=== PATIENT | female | born 1995 | race Caucasian/White ===

== ENCOUNTER 2020-05-28 22:00 | Emergency (ER) | payer MEDICAID, OTHER ==
[~2020-05-28] VITALS: Ht 157.5 cm; Wt 78.6 kg
[2020-05-28 22:53] LABS: BASO % 0.3 % (0.0-1.0); EOS # 0.2 10^3/uL (0.0-0.5); EOS % 1.6 % (0.0-3.0); HEMATOCRIT 42.3 % (36.0-47.0); HEMOGLOBIN 14.1 g/dl (12.0-15.5); LYMPH # 2.4 10^3/uL (1.5-5.0); LYMPH % 24.9 % (24.0-44.0); MEAN CORPUSCULAR HEMOGLOBIN 30.6 pg (27.0-33.0); MEAN CORPUSCULAR HGB CONC 33.3 g/dl (32.0-36.5); MEAN CORPUSCULAR VOLUME 91.8 fl (80.0-96.0); MONO # 0.6 10^3/uL (0.0-0.8); MONO % 5.9 % (0.0-5.0); NEUTROPHILS # 6.3 10^3/uL (1.5-8.5); NEUTROPHILS % 67.1 % (36.0-66.0); PLATELET COUNT, AUTOMATED 390 10^3/uL (150-450); RED BLOOD COUNT 4.61 10^6/uL (4.00-5.40); WHITE BLOOD COUNT 9.4 10^3/uL (4.0-10.0)
[2020-05-28] MEDS ORDERED: IBUP-1022 PO (23:27)
[2020-05-28 23:34] VITALS: BP 104/60
== END 2020-05-28 23:41 | disposition home or self-care (01) ==
LOC: M ED 22:00
DX: S39.012A Strain of muscle, fascia and tendon of lower back, initial encounter (principal); S39.011A Strain of muscle, fascia and tendon of abdomen, initial encounter; X58.XXXA Exposure to other specified factors, initial encounter; Y92.9 Unspecified place or not applicable; Y99.9 Unspecified external cause status; E28.2 Polycystic ovarian syndrome

== ENCOUNTER 2020-07-04 18:00 | Emergency (ER) | payer OTHER ==
[~2020-07-04] VITALS: Ht 157.5 cm; Wt 74.4 kg
[~2020-07-04 18:00] MED LIST: IBUP-1022 PO
[2020-07-04] MEDS ORDERED: HYDR-4570 (18:11)
[2020-07-04] MEDS ORDERED: NS 1,000 ML IV ONE (18:30)
[2020-07-04 18:41] LABS: BASO % 0.4 % (0.0-1.0); EOS # 0.2 10^3/uL (0.0-0.5); EOS % 2.5 % (0.0-3.0); HEMATOCRIT 39.9 % (36.0-47.0); HEMOGLOBIN 13.1 g/dl (12.0-15.5); LYMPH # 1.9 10^3/uL (1.5-5.0); LYMPH % 26.2 % (24.0-44.0); MEAN CORPUSCULAR HGB CONC 32.8 g/dl (32.0-36.5); MEAN CORPUSCULAR VOLUME 91.3 fl (80.0-96.0); MONO # 0.4 10^3/uL (0.0-0.8); NEUTROPHILS # 4.7 10^3/uL (1.5-8.5); NEUTROPHILS % 64.6 % (36.0-66.0); PLATELET COUNT, AUTOMATED 301 10^3/uL (150-450); RED BLOOD COUNT 4.37 10^6/uL (4.00-5.40); WHITE BLOOD COUNT 7.3 10^3/uL (4.0-10.0)
[2020-07-04 18:58] LABS: ERYTHROCYTE SEDIMENTATION RATE 10 mm/hr (0-20)
[2020-07-04] MEDS ORDERED: diphenhydrAMINE 50MG/ML VIAL (J1200) IV STA (19:07)
[2020-07-04] MEDS ORDERED: METOCLOPRAMIDE INJ 10MG/2ML VIAL (J2765 PER 1) IV ONE (19:15)
[2020-07-04] MEDS ORDERED: KETOROLAC 30 MG/ML 1ML VIAL IV ONE (19:15)
--- NOTE | 2020-07-04 19:35 | REPVR ---
PROCEDURE INFORMATION: Exam: CT Head Without Contrast Exam date and time: 07/04/2020 7:11 PM Age: 25 years old Clinical indication: Pain; Syncope and collapse; Headache; Additional info: New SCOTT x 5 days, severe, syncope 5 days ago TECHNIQUE: Imaging protocol: Computed tomography of the head without contrast. Radiation optimization: All CT scans at this facility use at least one of these dose optimization techniques: automated exposure control; mA and/or kV adjustment per patient size (includes targeted exams where dose is matched to clinical indication); or iterative reconstruction. COMPARISON: No relevant prior studies available. FINDINGS: Brain: No intracranial hemorrhage or extra-axial fluid collection. No evidence of mass effect or midline shift. [place]-white matter differentiation is intact. Cerebral ventricles: No ventriculomegaly. Bones/joints: No acute osseus lesion or fracture. Paranasal sinuses: Visualized sinuses are unremarkable. No fluid levels. Mastoid air cells: Unremarkable. Soft tissues: Unremarkable. IMPRESSION: No acute intracranial pathology. Electronically signed by: Alexis Ruff On 07/04/2020 19:35:17 PM
[2020-07-04 20:06] VITALS: BP 102/58
== END 2020-07-04 20:13 | disposition home or self-care (01) ==
LOC: M ED 18:00
DX: R51.9 Headache, unspecified (principal); R42 Dizziness and giddiness
CPT/HCPCS: 70450; 80047; 84702; 85025; 85652; 86140; 96361; 96374; 96375; 99284; J1200; J1885; J2765

== ENCOUNTER → 2020-09-12 | Outpatient (CLI) | payer OTHER ==
[~2020-09-12] MED LIST changes: +HYDR-4570
--- NOTE | 2020-09-15 09:35 | SLEEPCENT ---
NOCTURNAL POLYSOMNOGRAPHY DATE: 09/12/2020 ORDERED BY: DIONNE Powell Nocturnal polysomnography was performed for evaluation of sleep physiology in this patient with a history of excessive somnolence, morning headaches, and nonrestorative sleep. 7 hours and 47 minutes of data were reviewed. There were 426.5 minutes of sleep identified. Sleep latency was mildly prolonged at 26 minutes. REM latency was normal at 89 minutes. Sleep architecture was good with 4 REM cycles. Overall sleep efficiency was 92.4%. The electrocardiogram showed a sinus rhythm with an average heart rate of 64 beats per minute. Rate range 58 to 98. EEG showed some very mild coarsening of background, but no focal events and normal waveforms for wake and sleep. There were only 13 respiratory events identified of 10 seconds in duration or greater for an apnea-hypopnea index within normal limits at 1.8. The events that were seen were hypopneic and more frequent in the supine posture. Snoring was noted. Overall respiratory-related arousals occurred 3.1 times per hour. There was some minor limb activity, but no trains of events. Limb movement arousal index was 0.4. IMPRESSION: Normal nocturnal polysomnography with snoring.
== END ==
LOC: M SLEEP 09-11 20:00
PROVIDERS: ATTEND Nurse Practitioner Family
DX: R06.83 Snoring (principal)

== ENCOUNTER 2020-11-02 14:58 | Emergency (ER) | payer OTHER ==
[~2020-11-02] VITALS: Ht 157.5 cm; Wt 83.1 kg
--- OUTSIDE RECORDS SUMMARY | 2020-11-02 15:04 | CCD ---
Author Organization Unknown Address [address] [place] [address] Phone [phone] Care Team Providers Care Animal Geneticist Name Role Phone Jose Frye Unavailable Unavailable Allergies Code Code System Name Reaction Severity Status Onset NKDA Medications No Medications Reported Problems None recorded. Procedures Date Name Performed by 08/27/2020 Electrocardiogram, Routine ECG, 12 Leads Min Information not available Results Lab Results None recorded. Past Encounters 08/27/2020 Palpitations Hari Knox MD: [address] [place] [address], Ph. Social History Tobacco Smoking Status Former Smoker Vaccine List Notes: Pt declined flu shot Plan of Care Reminders Provider Appointments None recorded. Lab None recorded. Referral None recorded. Procedures None recorded. Surgeries None recorded. Imaging None recorded. Vitals Height Weight BMI Blood Pressure 62 in 174 lbs 9 oz 31.9 kg/m2 116/76 mm[Hg]
--- OUTSIDE RECORDS SUMMARY | 2020-11-02 15:04 | CCD | Continuity of Care Document ---
Author Author Holter/Event/Telemetry, Caitlin Robles Organization Unknown Address [address] [facility] [place] [address] Phone [phone] Care Team Providers Care Bleach Boiler Filler Name Role Phone Hari Knox MD AUTM [phone] Problems Active Problems Provider Date Dyspnea Bora Diaz MD Onset: 09/24/2020 Dietary management surveillance Bora Diaz MD Onset: 09/24/2020 Obesity Bora Diaz MD Onset: 09/24/2020 Right bundle branch block Bora Diaz MD Onset: 2020 Palpitations Bora Diaz MD Onset: 09/24/2020 Social History Type Date Description Comments Sex Unknown ETOH Use Occasionally consumes alcohol Tobacco Use Start: Unknown End: Unknown Patient is a former smoker started at age 14, at most 1 pack per week, quit at age 18 Smoking Status Reviewed: 09/24/20 Patient is a former smoker st arted at age 14, at most 1 pack per week, quit at age 18 Exercise Type/Frequency Fully active: Ab le to carry on all performance without restriction Home work-out daily Exercise Limitations Chest Pain Exercise Limitations Dizziness Exercise Limitations Palpitations Exercise Limitations Migraine Exercise Limitations Shortness Of Breath Allergies, Adverse Reactions, Alerts Active Allergies Reaction Severity Comments Date Adderall 09/24/2020 Medications Description No Active Medications Immunizations Description No Information Available Vital Signs Date Vital Result Comment 09/24/2020 1:14pm Weight 177.00 lb Height 62 inches 5'2" BMI (Body Mass Index) 32.4 kg/m2 Heart Rate 80 /min BP Systolic Sitting 90 mmHg Omron, large cuff/Ra BP Diastolic Sitting 54 mmHg Omron, large cuff/R a Results Description No Information Available Procedures Date Code Description Status 10/16/2020 66424 Holter Monitor Review And Rep ort Completed 10/16/2020 44333 Holter Hookup,Recording,Disconne ct Completed 09/24/2020 56925 ECG 12-Lead Completed Medical Devices Description No Information Available Encounters Type Date Location Provider Dx Diagnosis Office Visit 09/24/2020 1:30p Main Office Bora Diaz MD R00.2 Palpitations I45.19 Other right bundle-branch bl ock R06.02 Shortness of breath E66.09 Other obesity due to excess calories Z71.3 Dietary counseling and surve illance Assessments Date Code Description Provider 10/16/2020 R00.2 Palpitations Holter/Event/Tel emetry 09/24/2020 R00.2 Palpitations Bora Diaz MD 09/24/2020 I45.19 Other right bundle-branch block Bora Diaz MD 09/24/2020 R06.02 Shortness of breath Bora york MD 09/24/2020 E66.09 Other obesity due to excess henrry mary Bora Diza MD 09/24/2020 Z71.3 Dietary counseling and surveilla nce Bora Diaz MD Plan of Treatment Future Appointment(s):* 11/03/2020 9:00 am - ECHO at Main Office 09/24/2020 - Bora Diaz MD* R00.2 Palpitations* New Xrays:* US Echocardiogram Transthoracic W Doppler And Color Flow, Scheduled: 11/03/20 * New Orders:* Holter Monitor, Scheduled: 10/16/20 * Recommendations:* 24-hour Holter monitor Echocardiogram Doppler. * I45.19 Other right bundle-branch block * R06.02 Shortness of breath* Recommendations:* Echocardiogram Doppler was ordered for further evaluation. * E66.09 Other obesity due to excess calories* Recommendations:* LOW FAT, WHOLE- FOOD, PLANT-BASED DIET - Include fruits, vegetables, intact whole grains, beans & legumes; especially green leafy vegetables, cruciferous vegetables (e.g., broccoli, kale, cauliflower, brussel sprouts, cabbage), turmeric, ground flaxseeds - Avoid animal products (meat, poultry, fish, dairy products, eggs) - Avoid processed foods (added sugar, high fructose corn syrup, oil, salt) - Low Fat (8-12% of total calories) - No liquid oils, margarine, shortening, butter, lard, mayonnaise. - No trans-fats (partially hydrogenated oils). - No alcohol - No artificial sweeteners - B12 supplement if completely vegan and not on adequate amounts of B12 fortified foods - Non-GMO preferred - Avoid artificial food colors - No fish oil LOW SODIUM - Target total daily sodium 5934-0703 mg /d [do not go below 2300 mg/d] - No added salt. - Rule of thumb : Strive for sodium/calorie ratio less than or equal to 1.0 EXERCISE ADVICE (General exercise advice; depends on health conditions) Cardio: Walking or equivalent aerobic activity for 40-60 minutes at least 5 times a week and preferably everyday. Front planks 3 daily (30 seconds each) Resistance training 20-30 minutes, at least 2-3 times per week * Z71.3 Dietary counseling and surveillance * All * New Medication:* No Active Medications - * Follow up:* Further follow-up, if any, depending upon results of cardiac testing. Functional Status Functional Condition Comment Date Status Independent with all ADL's Activ e Mental Status Description No Information Available Referrals Description No Information Available
--- OUTSIDE RECORDS SUMMARY | 2020-11-02 15:04 | CCD ---
Author Organization Unknown Address [address] [place] [address] Phone [phone] Care Team Providers Care School Custodian Name Role Phone HODAN COLLAZO 2 [phone] Allergies Code Code System Name Reaction Severity Status Onset 37937 RxNorm Adderall Confusion Moderate to Severe Active Medications Name Status Start Date Stop Date amoxicillin 875 mg-potassium clavulanate 125 mg tablet Completed 10/16/2020 azithromycin 1 gram oral packet Completed 10/16/2020 ceftriaxone 250 mg solution for injection Completed 10/16/2020 cetirizine 10 mg tablet Completed 10/16/19 fluoxetine 20 mg capsule Completed fluticasone propionate 50 mcg/actuation nasal spray,suspension C ompleted 10/16/2020 hydroxyzine HCl 25 mg tablet Completed 01/2021 norgestimate 0.18 mg/0.215 mg/0.25 mg-ethinyl estradiol 25 m cg tablet Completed 10/16/2020 venlafaxine ER 37.5 mg capsule,extended release 24 hr Completed 10/16/2020 venlafaxine ER 75 mg capsule,extended release 24 hr Completed 10/16/2020 Xulane 150 mcg-35 mcg/24 hr transdermal patch Completed 10/16/2020 Problems Name Status Onset Date Source Anxiety Active 10/16/2020 Posttraumatic Stress Disorder Active 10/16/2020 Depressive Disorder Active 10/16/2020 Swelling of Eyelid Active 10/16/2020 Palpitations Active 10/16/2020 Procedures Date Name Performed by 08/27/2020 Electrocardiogram, Routine ECG, 12 Leads Min Information not available Results Lab Results None recorded. Past Encounters 10/16/2020 Fatigue; Venereal Disease Screening; Anxiety; Depressive Disorder; Posttraumatic Stress Disorder; Swelling of Eyelid Hari Knox MD: [address] [place] [address], Ph. 08/27/2020 Palpitations Hari Knox MD: [address] [place] [address], Ph. Social History Tobacco Smoking Status Former Smoker Vaccine List Notes: Pt declined flu shot Plan of Care Reminders Provider Appointments None recorded. Lab None recorded. Referral None recorded. Procedures None recorded. Surgeries None recorded. Imaging None recorded. Vitals 10/16/2020 08:40AM ESTABLISHED [id number] Height Weight BMI Blood Pressure 62 in 181 lbs 2 oz 33.1 kg/m2 98/0.6 mm[Hg] 08/27/2020 08:20AM NEW ACUTE 20 Height Weight BMI Blood Pressure 62 in 174 lbs 9 oz 31.9 kg/m2 116/76 mm[Hg]
--- OUTSIDE RECORDS SUMMARY | 2020-11-02 15:04 | CCD | Continuity of Care Document ---
Author Tabby Fernandez N.Juliet Organization Unknown Address [address] [place] [address] Phone [phone] Care Team Providers Care Rat Farmer Name Role Phone Liliana Choi AUTM Unavailable Hari Knox M.D. AUTM [phone] Problems Description No Information Available Social History Type Date Description Comments Sex Unknown Tobacco Use Start: Unknown Patient has never smoked Smoking Status Reviewed: 10/09/20 Patient has never smoked Allergies, Adverse Reactions, Alerts Active Allergies Reaction Severity Comments Date Adderall "loopy", AMS, Unkown 020 Medications Description No Active Medications Immunizations Description No Information Available Vital Signs Date Vital Result Comment 10/09/2020 2:29pm BP Systolic 116 mmHg BP Diastolic 64 mmHg Heart Rate 86 /min O2 % BldC Oximetry 100 % Body Temperature 97.8 F Height 64.5 inches 5'4.50" Weight 179.25 lb BMI (Body Mass Index) 30.3 kg/m2 [place] Body Weight 120 lb Weight 81.308 kg BSA (Body Surface Area) 1.88 m2 08/28/2020 12:53pm BP Systolic 102 mmHg BP Diastolic 72 mmHg Heart Rate 75 /min O2 % BldC Oximetry 98 % Body Temperature 97.0 F Height 64.5 inches 5'4.50" Weight 172.00 lb BMI (Body Mass Index) 29.1 kg/m2 [place] Body Weight 120 lb Neck Circumference in inches 14 [place] Score 3 Weight 78.019 kg BSA (Body Surface Area) 1.84 m2 Results Description No Information Available Procedures Description No Information Available Medical Devices Description No Information Available Encounters Type Date Location Provider Dx Diagnosis Office Visit 08/28/2020 1:15p [facility] Angi Moore N.Juliet R06.83 Snoring R40.0 Somnolence Assessments Date Code Description Provider 10/09/2020 R06.83 Snoring Yuly Moore N .PAiram 10/09/2020 R40.0 Somnolence Yuly Moore N .PAiram 08/28/2020 R06.83 Snoring Yuly Moore N .PAiram 08/28/2020 R40.0 Somnolence Yuly Moore, N .P. Plan of Treatment 10/09/2020 - Yuly Moore N.P.* R06.83 Snoring * R40.0 Somnolence * * Follow up:* Follow up as needed. Functional Status Description No Information Available Mental Status Description No Information Available Referrals Refer to Dr Reason for Referral Status Appt Date [facility] [place] [id number] [facility] [address] [place], [place] [address] [phone] Yuly Moore, F.N.P. [address] CONSULT DX SNORING RADHA? Creat ed [facility] [address] [place] [address] [phone] Yuly Moore, F.N.P. [id number] F/U DX SNORING R/O RADHA Create d [facility] [address] [place], [place] [address] [phone]
--- OUTSIDE RECORDS SUMMARY | 2020-11-02 15:04 | CCD ---
Author Author [facility] Organization [facility] Address Unknown Phone Unavailable Care Team Providers Care Inspector Poising Name Role Phone ANTECOL, Demarcus PETTIT MD Unavailable Unavailable ANTECOL, Demarcus PETTIT MD Unavailable Unavailable ANTECOL, Demarcus PETTIT MD Unavailable Unavailable ANTECOL, Demarcus PETTIT MD Unavailable Unavailable ANTECOL, Demarcus PETTIT MD Unavailable Unavailable ANTECOL, Demarcus PETTIT MD Unavailable Unavailable ANTECOL, Demarcus PETTIT MD Unavailable Unavailable ANTECOL, Demarcus PETTIT MD Unavailable Unavailable ANTECOL, Demarcus PETTIT MD Unavailable Unavailable ANTECOL, Demarcus PETTIT MD Unavailable Unavailable ANTECOL, Demarcus PETTIT MD Unavailable Unavailable ANTECOL, Demarcus PETTIT MD Unavailable Unavailable ANTECOL, Demarcus PETTIT MD Unavailable Unavailable ANTECOL, Demarcus PETTIT MD Unavailable Unavailable ANTECOL, Demarcus PETTIT MD Unavailable Unavailable ANTECOL, Demarcus PETTIT MD Unavailable Unavailable ANTECOL, Demarcus PETTIT MD Unavailable Unavailable ANTECOL, Demarcus PETTIT MD Unavailable Unavailable ANTECOL, Demarcus PETTIT MD Unavailable Unavailable ANTECOL, Demarcus PETTIT MD Unavailable Unavailable ANTECOL, Demarcus PETTIT MD Unavailable Unavailable ANTECOL, Demarcus PETTIT MD Unavailable Unavailable ANTECOL, Demarcus PETTIT MD Unavailable Unavailable ANTECOL, Demarcus PETTIT MD Unavailable Unavailable ANTECOL, Demarcus PETTIT MD Unavailable Unavailable ANTECOL, Demarcus PETTIT MD Unavailable Unavailable ANTECOL, Demarcus PETTIT MD Unavailable Unavailable ANTECOL, Demarcus PETTIT MD Unavailable Unavailable ANTECOL, Demarcus PETTIT MD Unavailable Unavailable ANTECOL, Demarcus PETTIT MD Unavailable Unavailable ANTECOL, Demarcus PETTIT MD Unavailable Unavailable ANTECOL, Demarcus PETTIT MD Unavailable Unavailable ANTECOL, Demarcus PETTIT MD Unavailable Unavailable ANTECOL, Demarcus PETTIT MD Unavailable Unavailable ANTECOL, Demarcus PETTIT MD Unavailable Unavailable ANTECOL, Demarcus PETTIT MD Unavailable Unavailable ANTECOL, Demarcus PETTIT MD Unavailable Unavailable ANTECOL, Demarcus PETTIT MD Unavailable Unavailable ANTECOL, Demarcus PETTIT MD Unavailable Unavailable ANTECOL, Demarcus PETTIT MD Unavailable Unavailable ANTECOL, Demarcus PETTIT MD Unavailable Unavailable ANTECOL, Demarcus PETTIT MD Unavailable Unavailable ANTECOL, Demarcus PETTIT MD Unavailable Unavailable ANTECOL, Demarcus PETTIT MD Unavailable Unavailable ANTECOL, Demarcus PETTIT MD Unavailable Unavailable ANTECOL, Demarcus PETTIT MD Unavailable Unavailable ANTECOL, Demarcus PETTIT MD Unavailable Unavailable ANTECOL, Demarcus PETTIT MD Unavailable Unavailable ANTECOL, Demarcus PETTIT MD Unavailable Unavailable ANTECOL, Demarcus PETTIT MD Unavailable Unavailable ANTECOL, Demarcus PETTIT MD Unavailable Unavailable ANTECOL, Demarcus PETTIT MD Unavailable Unavailable ANTECOL, Demarcus PETTIT MD Unavailable Unavailable ANTECOL, Demarcus PETTIT MD Unavailable Unavailable ANTECOL, Demarcus PETTIT MD Unavailable Unavailable Azucena Knox MD Unavailable Unavailable Azucena Knox MD Unavailable Unavailable Azucena Knox MD Unavailable Unavailable Azucena Knox MD Unavailable Unavailable Azucena Knox MD Unavailable Unavailable Azucena Knox MD Unavailable Unavailable Azucena Knox MD Unavailable Unavailable Azucena Knox MD Unavailable Unavailable Azucena Knox MD Unavailable Unavailable Azucena Knox MD Unavailable Unavailable Azucena Knox MD Unavailable Unavailable Azucena Knox MD Unavailable Unavailable Azucena Knox MD Unavailable Unavailable Azucena Knox MD Unavailable Unavailable Azucena Knox MD Unavailable Unavailable Azucena Knox MD Unavailable Unavailable Azucena Knox MD Unavailable Unavailable Azucena Knox MD Unavailable Unavailable Azucena Knox MD Unavailable Unavailable Azucena Knox MD Unavailable Unavailable Azucena Knox MD Unavailable Unavailable Azucena Knox MD Unavailable Unavailable Azucena Knox MD Unavailable Unavailable Azucena Knox MD Unavailable Unavailable Azucena Knox MD Unavailable Unavailable Azucena Knox MD Unavailable Unavailable Azucena Knox MD Unavailable Unavailable Azucena Knox MD Unavailable Unavailable Azucena Knox MD Unavailable Unavailable Azucena Knox MD Unavailable Unavailable Azucena Knox MD Unavailable Unavailable Azucena Knox MD Unavailable Unavailable Azucena Knox MD Unavailable Unavailable Azucena Knox MD Unavailable Unavailable Azucena Knox MD Unavailable Unavailable Azucena Knox MD Unavailable Unavailable Azucena Knox MD Unavailable Unavailable Azucena Knox MD Unavailable Unavailable Azucena Knox MD Unavailable Unavailable Azucena Knox MD Unavailable Unavailable Azucena Knox MD Unavailable Unavailable Azucena Knox MD Unavailable Unavailable Azucena Knox MD Unavailable Unavailable Azucena Knox MD Unavailable Unavailable Azucena Knox MD Unavailable Unavailable Azucena Knox MD Unavailable Unavailable Azucena Knox MD Unavailable Unavailable Azucena Knox MD Unavailable Unavailable Azucena Knox MD Unavailable Unavailable Azucena Knox MD Unavailable Unavailable Azucena Knox MD Unavailable Unavailable Azucena Knox MD Unavailable Unavailable Azucena Knox MD Unavailable Unavailable Azucena Knox MD Unavailable Unavailable Azucena Knox MD Unavailable Unavailable Azucena Knox MD Unavailable Unavailable Azucena Knox MD Unavailable Unavailable Azucena Knox MD Unavailable Unavailable Azucena Knox MD Unavailable Unavailable Azucena Knox MD Unavailable Unavailable Azucena Knox MD Unavailable Unavailable Azucena Knox MD Unavailable Unavailable Azucena Knox MD Unavailable Unavailable Azucena Knox MD Unavailable Unavailable Azucena Knox MD Unavailable Unavailable Azucena Knox MD Unavailable Unavailable Azucena Knox MD Unavailable Unavailable Azucena Knox MD Unavailable Unavailable Azucena Knox MD Unavailable Unavailable Azucena Knox MD Unavailable Unavailable Azucena Knox MD Unavailable Unavailable Azucena Knox MD Unavailable Unavailable Azucena Knox MD Unavailable Unavailable Azucena Knox MD Unavailable Unavailable Azucena Knox MD Unavailable Unavailable Azucena Knox MD Unavailable Unavailable Azucena Knox MD Unavailable Unavailable Azucena Knox MD Unavailable Unavailable Azucena Knox MD Unavailable Unavailable Azucena Knox MD Unavailable Unavailable Azucena Knox MD Unavailable Unavailable Azucena Knox MD Unavailable Unavailable Azucena Knox MD Unavailable Unavailable Azucena Knox MD Unavailable Unavailable Azucena Knox MD Unavailable Unavailable Azucena Knox MD Unavailable Unavailable Azucena Knox MD Unavailable Unavailable Azucena Knox MD Unavailable Unavailable Azucena Knox MD Unavailable Unavailable SIM, ADRI LEANDRO CAKE ICER-C Unavailable Unavailable SIM, ADRI LEANDRO CAKE ICER-C Unavailable Unavailable SIM, ADRI LEANDRO CAKE ICER-C Unavailable Unavailable SIM, ADRI LEANDRO CAKE ICER-C Unavailable Unavailable SIM, ADRI LEANDRO CAKE ICER-C Unavailable Unavailable SIM, ADRI LEANDRO CAKE ICER-C Unavailable Unavailable SIM, ADRI LEANDRO CAKE ICER-C Unavailable Unavailable SIM, ADRI LEANDRO CAKE ICER-C Unavailable Unavailable SIM, ADRI LEANDRO CAKE ICER-C Unavailable Unavailable SIM, ADRI LEANDRO CAKE ICER-C Unavailable Unavailable SIM, ADRI LEANDRO CAKE ICER-C Unavailable Unavailable SIM, ADRI LEANDRO CAKE ICER-C Unavailable Unavailable SIM, ADRI LEANDRO CAKE ICER-C Unavailable Unavailable SIM, ADRI LEANDRO CAKE ICER-C Unavailable Unavailable SIM, ADRI LEANDRO CAKE ICER-C Unavailable Unavailable SIM, ADRI LEANDRO CAKE ICER-C Unavailable Unavailable Jana Copeland CNM Unavailable Unavailable Jana Copeland CNM Unavailable Unavailable aJna Copeland CNM Unavailable Unavailable Jana Copelanda CNM Unavailable Unavailable Jana Copelanda CNM Unavailable Unavailable Jana Copelanda CNM Unavailable Unavailable Jana Copelanda CNM Unavailable Unavailable Jana Copelanda CNM Unavailable Unavailable Min, L Jewel CNM Unavailable Unavailable Min, L Jewel CNM Unavailable Unavailable Min, L Jewel CNM Unavailable Unavailable Min, L Jewel CNM Unavailable Unavailable Min, L Jewel CNM Unavailable Unavailable Min, L Jewel CNM Unavailable Unavailable NO, PCP Unavailable Unavailable Re-disclosure Warning The records that you are about to access may contain information from federally-assisted alcohol or drug abuse programs. If such information is present, then the following federally mandated warning applies: This information has been disclosed to you from records protected by federal confidentiality rules (42 CFR part 2). The federal rules prohibit you from making any further disclosure of this information unless further disclosure is expressly permitted by the written consent of the person to whom it pertains or as otherwise permitted by 42 CFR part 2. A general authorization for the release of medical or other information is NOT sufficient for this purpose. The Federal rules restrict any use of the information to criminally investigate or prosecute any alcohol or drug abuse patient.The records that you are about to access may contain highly sensitive health information, the redisclosure of which is protected by Article 27-F of the [facility] Public Health law. If you continue you may have access to information: Regarding HIV / AIDS; Provided by facilities licensed or operated by the [facility] Office of Mental Health; or Provided by the [facility] Office for People With Developmental Disabilities. If such information is present, then the following [facility] mandated warning applies: This information has been disclosed to you from confidential records which are protected by state law. State law prohibits you from making any further disclosure of this information without the specific written consent of the person to whom it pertains, or as otherwise permitted by law. Any unauthorized further disclosure in violation of state law may result in a fine or prison sentence or both. A general authorization for the release of medical or other information is NOT sufficient authorization for further disc losure. Encounters Encounter Providers Location Date Indications Data Source(s ) Hari Knox MD: [address] [place] [phone], Ph. Attender: Hari Knox MD [facility] Medical 10/16/2020 12:00:00 AM NURIS RAYMUNDO ([facility]) Outpatient Attender: HODAN COLLAZO MD Main Office 09/24/2020 12:30:00 PM EST MEDENT ([facility]) Outpatient Attender: LEANDRO ZUNIGA-Angi Chiang/Ellen/Mitesh/Roger roman 08/28/2020 12:15:00 PM EST MEDENT ([facility] Hari Knox MD: [address] [place] [address], Ph. Attender: Hari Knox MD [facility] Medical 08/27/2020 12:00:00 AM EST ZACKARY ([facility]) Hari Knox MD: [address] [place] [address], Ph. Attender: Hari Knox MD [facility] Medical 08/27/2020 12:00:00 AM EST ZACKARY ([facility]) [facility] NO 05/25/2020 08:23:00 AM EDT - 05/25/2020 09:23:00 AM EDT [facility] Medications Medication Brand Name Start Date Product Form Dose Route Admi nistrative Instructions Pharmacy Instructions Status Indications Reaction Description Data Source(s) Azithromycin 16.7 MG/ML Oral Suspension azithromycin 1 gram oral packet azithromycin 1 gram oral packet comple shameka azithromycin 1000 MG Powder for Oral Suspension ZACKARY ([facility]) 24 HR venlafaxine 37.5 MG Extended Relea se Oral Capsule venlafaxine ER 37.5 mg capsule,extended release 24 hr venlafaxine ER 37.5 mg capsule,extended release 24 hr completed 24 HR v enlafaxine 37.5 MG Extended Release Oral Capsule ZACKARY ([facility]) cetirizine hydrochloride 10 MG Oral Tablet cetirizine 10 mg tablet cetirizine 10 mg tablet completed cetirizine h ydrochloride 10 MG Oral Tablet ZACKARY ([facility]) Hydroxyzine Hydrochloride 25 MG Oral Tablet hydroxyzin e HCl 25 mg tablet hydroxyzine HCl 25 mg tablet completed hydroxyzine hydrochloride 25 MG Oral Tablet ZACKARY ([facility]) 24 HR venlafaxine 75 MG Extended Release Oral Capsule venlafaxine ER 75 mg capsule,extended release 24 hr venlafaxine ER 75 mg capsule,extended re lease 24 hr completed 24 HR v enlafaxine 75 MG Extended Release Oral Capsule ZACKARY ([facility] er) 168 HR Ethinyl Estradiol 0.04939 MG/HR / norelgestromin 0.59640 MG/HR Transdermal Patch [Xulane] Xulane 150 mcg-35 mcg/24 hr transdermal patch Xulane 150 mcg-35 mcg/24 hr transdermal patch completed 168 HR ethinyl estradiol 0.83322 MG/HR / norelgestromin 0.37532 MG/HR Transdermal System [Xulane] ZACKARY ([facility]) Ceftriaxone 250 MG Injection ceftriaxone 250 mg soluti on for injection ceftriaxone 250 mg solution for injection completed ceftriaxone 250 MG Injection ZACKARY ([facility]) Amoxicillin 875 MG / Clavulanate 125 MG Oral Tablet amoxicillin 875 mg-potassium clavulanate 125 mg tablet amoxicillin 875 mg-potassium clavulanate 125 mg tablet completed amoxici llin 875 MG / clavulanate 125 MG Oral Tablet ZACKARY ([facility]) norgestimate 0.18 mg/0.215 mg/0.25 mg-ethinyl estradiol 25 mcg t ablet [id number] completed norgestimate 0 .18 mg/0.215 mg/0.25 mg-ethinyl estradiol 25 mcg tablet ZACKARY ([facility]) Fluoxetine 20 MG Oral Capsule fluoxetine 20 mg capsule fluox etine 20 mg capsule completed fluoxetine 20 MG Oral Capsule ZACKARY ([facility]) fluticasone propionate 50 mcg/actuation nasal spray,suspension [id number] completed fluticasone propionate 0.05 MG/ACTUAT Metered Dose Nasal Dike ZACKARY ([facility]) Insurance Providers Payer name Policy type / Coverage type Policy ID Covered republican ID Covered republican's relationship to conner Policy Conner Plan Information [facility] COMM[facility]AN [facility] [id number] SP [id number] [facility] [id number] [facility] [id number] [place] [id number] SP [id number] [facility] COMMUNITY PLAN [facility] [id number] SP [id number] [facility] [id number] SP [id number] [facility] COMMUNITY PLAN XIX [id number] 18 [id number] U [id number] Spouse [id number] Problems, Conditions, and Diagnoses Code Display Name Description Problem Type Effective Dates Data Source(s) 22996400 Palpitations Palpitations Problem 10/16/2020 12:00:00 A M EST ZACKARY ([facility]) [id number] Swelling of eyelid Swelling of Eyelid Problem 01/2021 12:00:00 AM EST ZACKARY ([facility]) [id number] Depressive disorder Depressive Disorder Problem 0 10/16/2020 12:00:00 AM EST ZACKARY ([facility]) [id number] Posttraumatic stress disorder Posttraumatic Stress Dis order Problem 10/16/2020 12:00:00 AM EST ZACKARY ([facility]) [id number] Anxiety Anxiety Problem 10/16/2020 12:00:00 AM ES T ZACKARY ([facility]) [id number] Palpitations Palpitations Problem 09/24/2020 12:00:00 A M EST MEDENT ([facility]) [id number] Right bundle branch block Right bundle branch block Pr oblem 09/24/2020 12:00:00 AM EST MEDENT ([facility]) [id number] Obesity Obesity Problem 09/24/2020 12:00:00 AM ES T MEDENT ([facility]) [id number] Dietary management surveillance Dietary manageme nt surveillance Problem 09/24/2020 12:00:00 AM EST MEDENT ([facility]) [id number] Dyspnea Dyspnea Problem 09/24/2020 12:00:00 AM ES T MEDENT ([facility]) [id number] Encounter for supervision of other normal , unspecified trimester Encounter for supervision of other normal , u nspecified trimester Diagnosis 05/25/2020 08:23:00 AM T [facility] Surgeries/Procedures Procedure Description Date Indications Data Source(s) XTRNL ECG < 48 HR RECORDING 10/16/2020 12:00:00 AM EST MEDENT ([facility]) XTRNL ECG CONTINUOUS RHYTHM PHYS REVIEW&INTERPJ 2020 12:00:00 AM EST MEDENT ([facility]) ECG ROUTINE ECG W/LEAST 12 LDS W/I&R 09/24/2020 12:00: 00 AM EST ZEYAD ([facility]) electrocardiogram, routine ECG, 12 leads min 0 12:00:00 AM EST ZACKARY ([facility]) electrocardiogram, routine ECG, 12 leads min 0 12:00:00 AM EST LILLIE ([facility]) Results ID Date Data Source [id number] 05/27/2020 10:26:00 [place] [address] PHONE: [phone] FAX: [phone] Name .................. : ABE Robles Acct Number.................. : [id number] ROOM. ................. : Number ................... : [id number] Stay type ............. : O/P Discharge Date......... ... : 05/25/20 Admit Date ......... : 05/25/20 Admit Phys .................... : JEREMIE Date of ....... : 1995 Family Phys ................... : NO PCP Phone .................. : [phone] Age ................................ : 25 Film# .................. .:[id number] Sex ................................. : F Unsigned transcriptions are preliminary reports and do not represent a medical or legal document OB 1ST TRI UP TO 14 WEEKS [id number] COMPLETE:05/25/20 08:52 KNB [id number] (REASON FOR OBS: VIAB/DATING OBSTETRICAL ULTRASOUND: FINDINGS: Transabdominal imaging of the pelvis was performed. Intrauterine is not identified. The endometrium is within normal limits at 3 mm. Uterine dimensions are 3.9 x 5.4 x 10.6 cm. The myometrium is homogeneous. There is no adnexal mass or cul-de-sac fluid. The right ovary measures 3.1 x 3.1 x 2.3 cm. The left ovary measures 3.0 x 2.5 x 2.7 cm. IMPRESSION: Unremarkable transabdominal pelvic ultrasonographic sonography. Intrauterine or ectopic is not seen. Continued clinical management is recommended since sonography cannot definitively exclude an ectopic . Electronically Reviewed and Signed By Marcus Henderson MD , 05/27/20 10:26, KGG Transcribe Initials: GRAHAM , Transcribe Date: 05/25/20 18:29, Dictation Date: Copy for: MIN Bates via fax Copy for: [address] [place] [address] Page 1 of 1 Name Value Range Interpretation Code Description Data [place] rce(s) Supporting Document(s) Procedure Social History Code Duration Value Status Description Data Source(s ) Smoking 10/09/2020 12:00:00 AM EST Patient has never smoked co mpleted Patient has never smoked MEDENT ([facility], ) Smoking 09/24/2020 12:00:00 AM EST Patient is a former smoker completed Patient is a former smoker MEDENT ([facility]) Vital Signs ID Date Data Source UNK Name Value Range Interpretation Code Description Data Source(s) Body weight 2898 [oz_av] 2898 [oz_av] ZACKARY ([facility]) Systolic blood pressure 98 mm[Hg] 98 mm[Hg] A THENA ([facility]) Body mass index (BMI) [Ratio] 33.1 kg/m2 33.1 k g/m2 ZACKARY ([facility]) Body height 62 [in_i] 62 [in_i] ZACKARY ([facility]) Diastolic blood pressure 0.6 mm[Hg] 0.6 mm[Hg] ZACKARY ([facility]) Body surface area Derived from formula 1.88 m2 1.88 m2 [facility] ([facility]) Body weight 81.308 kg 81.308 kg [facility] ([facility]) Jerome body weight 120 [lb_av] 120 [lb_av] MEDEN T ([facility]) Body mass index (BMI) [Ratio] 30.3 kg/m2 30.3 k g/m2 [facility] ([facility]) Body weight 179.25 [lb_av] 179.25 [lb_av] MEDEN T ([facility]) Body height 64.5 [in_i] 64.5 [in_i] [facility] ([facility]) 5'4.50" Body temperature 97.8 [degF] 97.8 [degF] [facility] ([facility]) Oxygen saturation in Arterial blood by Pulse oximetry 100 % 100 % [facility] ([facility]) Heart rate 86 /min 86 /min [facility] ([facility]) Diastolic blood pressure 64 mm[Hg] 64 mm[Hg] [facility] ([facility]) Systolic blood pressure 116 mm[Hg] 116 mm[Hg] [facility] Diastolic blood pressure--sitting 54 mm[Hg] 54 mm[Hg] [facility] Omron, large cuff/Ra Systolic blood pressure--sitting 90 mm[Hg] 90 mm[Hg] [facility] Omron, large cuff/Ra Heart rate 80 /min 80 /min [facility] Body mass index (BMI) [Ratio] 32.4 kg/m2 32.4 k g/m2 [facility] Body height 62 [in_i] 62 [in_i] [facility] 5'2" Body weight 177.00 [lb_av] 177.00 [lb_av] MEDEN T ([facility]) Body surface area Derived from formula 1.84 m2 1.84 m2 MEDENT ([facility], ) Body weight 78.019 kg 78.019 kg MEDENT ([facility], ) Jerome body weight 120 [lb_av] 120 [lb_av] MEDEN T ([facility]) Body mass index (BMI) [Ratio] 29.1 kg/m2 29.1 k g/m2 MEDENT ([facility]) Body weight 172.00 [lb_av] 172.00 [lb_av] MEDEN T ([facility], ) Body height 64.5 [in_i] 64.5 [in_i] MEDENT ([facility], ) 5'4.50" Body temperature 97.0 [degF] 97.0 [degF] [facility], ) Oxygen saturation in Arterial blood by Pulse oximetry 98 % 98 % [facility] Heart rate 75 /min 75 /min [facility], ) Diastolic blood pressure 72 mm[Hg] 72 mm[Hg] MEDENT ([facility]) Systolic blood pressure 102 mm[Hg] 102 mm[Hg] M EDENT ([facility], ) Body weight 2793 [oz_av] 2793 [oz_av] ZACKARY ([facility]) Systolic blood pressure 116 mm[Hg] 116 mm[Hg] A [facility] ([facility]) Body mass index (BMI) [Ratio] 31.9 kg/m2 31.9 k g/m2 ZACKARY ([facility]) Body height 62 [in_i] 62 [in_i] ZACKARY ([facility]) Diastolic blood pressure 76 mm[Hg] 76 mm[Hg] ZACKARY ([facility]) Body weight 2793 [oz_av] 2793 [oz_av] ZACKARY ([facility]) Systolic blood pressure 116 mm[Hg] 116 mm[Hg] A [facility] ([facility]) Body mass index (BMI) [Ratio] 31.9 kg/m2 31.9 k g/m2 ZACKARY ([facility]) Body height 62 [in_i] 62 [in_i] ZACKARY ([facility]) Diastolic blood pressure 76 mm[Hg] 76 mm[Hg] ZACKARY ([facility]) Patient Treatment Plan of Care Planned Activity Planned Date Details Description Data Source (s) 168 HR Ethinyl Estradiol 0.32798 MG/HR / norelgestromin 0.63631 MG/HR Transdermal Patch [Xulane] ATHEN A ([facility]) 24 HR venlafaxine 75 MG Extended Release Oral Capsule ZACKARY ([facility]) 24 HR venlafaxine 37.5 MG Extended Release Oral Capsule ZACKARY ([facility]) norgestimate 0.18 mg/0.215 mg/0.25 mg-ethinyl estradiol 25 mcg tabl et ZACKARY ([facility]) Hydroxyzine Hydrochloride 25 MG Oral Tablet ZACKARY ([facility]) fluticasone propionate 50 mcg/actuation nasal spray,suspension ZACKARY ([facility]) Fluoxetine 20 MG Oral Capsule ZACKARY ([facility]) cetirizine hydrochloride 10 MG Oral Tablet ZACKARY ([facility]) Ceftriaxone 250 MG Injection ZACKARY ([facility]) Azithromycin 16.7 MG/ML Oral Suspension ZACKARY ([facility]) Amoxicillin 875 MG / Clavulanate 125 MG Oral Tablet ZACKARY ([facility])
--- NOTE | 2020-11-02 16:20 | ECGEPIP ---
[facility] - ED Test Date: 2020-11-02 Pat Name: ELVIA FISH Department: Room: - Gender: Female Access Control Specialist: TY : 1995 Requested By: Margie Lilly Order Number: [id number] Reading MD: Bora Ramesh Measurements Intervals [place] Rate: 69 P: 49 MS: 166 QRS: 66 QRSD: 92 T: 50 QT: 400 QTc: 428 Interpretive Statements Normal sinus rhythm v2-v3 leads reversed Likely similar to tracing done 08-25-20 Electronically Signed on 11-02-2020 16:20:33 EST by Bora Ramesh
--- OUTSIDE RECORDS SUMMARY | 2020-11-02 17:04 | CCD ---
Author Author [facility] Organization [facility] Address Unknown Phone Unavailable Care Team Providers Care Portal Administrator Name Role Phone ANTECOL, Demarcus PETTIT MD [...] Unavailable Azucena Knox MD Unavailable Unavailable Azucena Konx MD Unavailable Unavailable Azucena Knox MD Unavailable [...] Unavailable Azucena Knox MD Unavailable Unavailable Azucena Konx MD Unavailable Unavailable Azucena Knox MD Unavailable [...] Knox MD Unavailable Unavailable SIM, ADRI LEANDRO MARINE ENGINE MACHINIST-C Unavailable Unavailable SIM, ADRI LEANDRO MARINE ENGINE MACHINIST-C Unavailable Unavailable SIM, ADRI LEANDRO MARINE ENGINE MACHINIST-C Unavailable Unavailable SIM, ADRI LEANDRO MARINE ENGINE MACHINIST-C Unavailable Unavailable SIM, ADRI LEANDRO MARINE ENGINE MACHINIST-C Unavailable Unavailable SIM, ADRI LEANDRO MARINE ENGINE MACHINIST-C Unavailable Unavailable SIM, ADRI LEANDRO MARINE ENGINE MACHINIST-C Unavailable Unavailable SIM, ADRI LEANDRO MARINE ENGINE MACHINIST-C Unavailable Unavailable SIM, ADRI LEANDRO MARINE ENGINE MACHINIST-C Unavailable Unavailable SIM, ADRI LEANDRO MARINE ENGINE MACHINIST-C Unavailable Unavailable SIM, ADRI LEANDOR MARINE ENGINE MACHINIST-C Unavailable Unavailable SIM, ADRI LEANDRO MARINE ENGINE MACHINIST-C Unavailable Unavailable SIM, ADRI LEANDRO MARINE ENGINE MACHINIST-C Unavailable Unavailable SIM, ADRI LEANDRO MARINE ENGINE MACHINIST-C Unavailable Unavailable SIM, ADRI LEANDRO MARINE ENGINE MACHINIST-C Unavailable Unavailable SIM, ADRI LEANDRO MARINE ENGINE MACHINIST-C Unavailable Unavailable Jana Copeland CNM Unavailable Unavailable Jana Copeland CNM Unavailable Unavailable Jana Copeland CNM Unavailable Unavailable Jana Copeland CNM Unavailable Unavailable Jana Copelanda CNM Unavailable Unavailable Jana Copeland CNM Unavailable Unavailable Jana Copeland CNM Unavailable Unavailable Min, L Jewel CNM [...] is protected by Article 27-F of the [facility] Public Health law. If you continue you may have access to information: Regarding HIV / AIDS; Provided by facilities licensed or operated by the [facility] Office of Mental Health; or Provided by the [facility] Office for People With Developmental Disabilities. If such information is present, then the following [facility] mandated warning applies: This information has been [...] law may result in a fine or fci sentence or both. A general authorization for the release of medical or other information is NOT sufficient authorization for further disc losure. Encounters Encounter Providers Location Date Indications Data Source(s ) Hari Knox MD: [address] [place] [phone], Ph. Attender: Hari Knox MD [facility] Medical 10/16/2020 12:00:00 AM NURIS RAYMUNDO ([facility]) Outpatient Attender: HODAN COLLAZO MD Main Office 09/24/2020 12:30:00 PM EST MEDENT ([facility]) Outpatient Attender: LEANDRO MENDOZAP-Angi Chiang/Ellen/Mitesh/Roger roman 08/28/2020 12:15:00 PM EST MEDENT ([facility]) Hari Knox MD: [address] [place] [phone], Ph. Attender: Hari Knox MD [facility] Medical 08/27/2020 12:00:00 AM EST ZACKARY ([facility]) Hari Knox MD: [address] [place] [phone], Ph. Attender: Hari Knox MD [facility] Medical 08/27/2020 12:00:00 AM EST ZACKARY ([facility]) Outpatient [facility] NO 05/25/2020 08:23:00 AM EDT - 05/25/2020 09:23:00 AM EDT [facility] Medications Medication Brand Name Start Date Product Form Dose Route Admi nistrative Instructions Pharmacy Instructions Status Indications Reaction Description Data Source(s) Azithromycin 16.7 MG/ML Oral Suspension azithromycin 1 gram oral packet azithromycin 1 gram oral packet comple shameka azithromycin 1000 MG Powder for Oral Suspension ZACKARY ([facility]) 24 HR venlafaxine 37.5 MG Extended Relea se Oral Capsule venlafaxine ER 37.5 mg capsule,extended release 24 hr venlafaxine ER 37.5 mg capsule,extended release 24 hr completed 24 HR v enlafaxine 37.5 MG Extended Release Oral Capsule ZACKARY ([facility]) cetirizine hydrochloride 10 MG Oral Tablet cetirizine 10 mg tablet cetirizine 10 mg tablet completed cetirizine h ydrochloride 10 MG Oral Tablet ZACKARY ([facility]) Hydroxyzine Hydrochloride 25 MG Oral Tablet hydroxyzin e HCl 25 mg tablet hydroxyzine HCl 25 mg tablet completed hydroxyzine hydrochloride 25 MG Oral Tablet ZACKARY ([facility]) 24 HR venlafaxine 75 MG Extended Release Oral Capsule venlafaxine ER 75 mg capsule,extended release 24 hr venlafaxine ER 75 mg capsule,extended re lease 24 hr completed 24 HR v enlafaxine 75 MG Extended Release Oral Capsule ZACKARY ([facility]) 168 HR Ethinyl Estradiol 0.55132 MG/HR / norelgestromin 0.36816 MG/HR Transdermal Patch [Xulane] Xulane 150 mcg-35 mcg/24 hr transdermal patch Xulane 150 mcg-35 mcg/24 hr transdermal patch completed 168 HR ethinyl estradiol 0.05332 MG/HR / norelgestromin 0.95067 MG/HR Transdermal System [Xulane] ZACKARY ([facility]) Ceftriaxone 250 MG Injection ceftriaxone 250 mg soluti on for injection ceftriaxone 250 mg solution for injection completed ceftriaxone 250 MG Injection ZACKARY ([facility]) Amoxicillin 875 MG / Clavulanate 125 MG Oral Tablet amoxicillin 875 mg-potassium clavulanate 125 mg tablet amoxicillin 875 mg-potassium clavulanate 125 mg tablet completed amox[place]lin 875 MG / clavulanate 125 MG Oral Tablet ZACKARY ([facility]) norgestimate 0.18 mg/0.215 mg/0.25 mg-ethinyl estradiol 25 mcg t ablet [id number] completed norgestimate 0 .18 mg/0.215 mg/0.25 mg-ethinyl estradiol 25 mcg tablet ZACKARY ([facility]) Fluoxetine 20 MG Oral Capsule fluoxetine 20 mg capsule fluox etine 20 mg capsule completed fluoxetine 20 MG Oral Capsule ZACKARY ([facility]) fluticasone propionate 50 mcg/actuation nasal spray,suspension [id number] completed fluticasone propionate 0.05 MG/ACTUAT Metered Dose Nasal [place] ZACKARY ([facility]) Insurance Providers Payer name Policy type / Coverage type Policy ID Covered republican ID Covered republican's relationship to cristina Policy Cristina Plan Information [facility] COMMUNITY PLAN [facility] [id number] SP [id number] [facility] [id number] [facility] [id number] [place] [id number] SP [id number] [facility] COMMUNITY PLAN [facility] [id number] SP [id number] FORMERLY NAMED [facility] [id number] SP [id number] [facility] COMMUNITY PLAN XIX [id number] 18 [id number] U [id number] Spouse [id number] Problems, Conditions, and Diagnoses Code Display Name Description Problem Type Effective Dates Data Source(s) 49448013 Palpitations Palpitations Problem 10/16/2020 12:00:00 A M EST ZACKARY ([facility]) [id number] Swelling of eyelid Swelling of Eyelid Problem 01/2021 12:00:00 AM EST ZACKARY ([facility]) [id number] Depressive disorder Depressive Disorder Problem 0 10/16/2020 12:00:00 AM EST ZACKARY ([facility]) [id number] Posttraumatic stress disorder Posttraumatic Stress Dis order Problem 10/16/2020 12:00:00 AM EST ZACKARY ([facility]) [id number] Anxiety Anxiety Problem 10/16/2020 12:00:00 AM ES T ZACKARY ([facility]) [id number] Palpitations Palpitations Problem 09/24/2020 12:00:00 A M EST MEDENT ([facility]) [id number] Right bundle branch block Right bundle branch block Pr oblem 09/24/2020 12:00:00 AM EST MEDENT ([facility]) [id number] Obesity Obesity Problem 09/24/2020 12:00:00 AM ES T MEDENT ([facility]) [id number] Dietary management surveillance Dietary manageme nt surveillance Problem 09/24/2020 12:00:00 AM EST MEDENT ([facility]) [id number] Dyspnea Dyspnea Problem 09/24/2020 12:00:00 AM ES T MEDENT ([facility]) [id number] Encounter for supervision of other normal , unspecified trimester Encounter for supervision of other normal , u nspecified trimester Diagnosis 05/25/2020 08:23:00 AM EDT [facility] Surgeries/Procedures Procedure Description Date Indications Data Source(s) XTRNL ECG < 48 HR RECORDING 10/16/2020 12:00:00 AM EST MEDENT ([facility]) XTRNL ECG CONTINUOUS RHYTHM PHYS REVIEW&INTERPJ 2020 12:00:00 AM EST MEDENT ([facility]) ECG ROUTINE ECG W/LEAST 12 LDS W/I&R 09/24/2020 12:00: 00 AM EST ZEYAD ([facility]) electrocardiogram, routine ECG, 12 leads min 0 12:00:00 AM EST ZACKARY ([facility]) electrocardiogram, routine ECG, 12 leads min 0 12:00:00 AM EST GORMAN ([facility]) Results ID Date Data Source [id number] 05/27/2020 10:26:00 [place] [address] PHONE: [phone] FAX: [phone] Name .................. : ABE Robles Acct Number.................. : [id number] ROOM. ................. : Number ................... : [id number] Stay type ............. : O/P Discharge Date......... ... : 05/25/20 Admit Date ......... : 05/25/20 Admit Phys .................... : JEREMIE Date of ....... : 1995 Family Phys ................... : NO PCP Phone .................. : [phone] Age ................................ : 25 Film# .................. .:[id number] Sex ................................. : F Unsigned transcriptions are preliminary reports and do not represent a medical or legal document OB 1ST TRI UP TO 14 WEEKS 85064OF COMPLETE:05/25/20 08:52 KNB [id number] (REASON FOR OBS: VIAB/DATING OBSTETRICAL ULTRASOUND: FINDINGS: [...] for: MIN Bates via fax Copy for: [address] [place] [address] Page 1 of 1 Name Value Range Interpretation Code Description Data Kenya rce(s) Supporting Document(s) Procedure Social History Code Duration Value Status Description Data Source(s ) Smoking 10/09/2020 12:00:00 AM EST Patient has never smoked co mpleted Patient has never smoked MEDENT ([facility], ) Smoking 09/24/2020 12:00:00 AM EST Patient is a former smoker completed Patient is a former smoker MEDENT ([facility]) Vital Signs ID Date Data Source UNK Name Value Range Interpretation Code Description Data Source(s) Body weight 2898 [oz_av] 2898 [oz_av] ZACKARY ([facility]) Systolic blood pressure 98 mm[Hg] 98 mm[Hg] A THENA ([facility]) Body mass index (BMI) [Ratio] 33.1 kg/m2 33.1 k g/m2 GORMAN ([facility]) Body height 62 [in_i] 62 [in_i] ZACKARY ([facility]) Diastolic blood pressure 0.6 mm[Hg] 0.6 mm[Hg] ZACKARY ([facility]) Body surface area Derived from formula 1.88 m2 1.88 m2 [facility] ([facility]) Body weight 81.308 kg 81.308 kg [facility] ([facility]) [place] body weight 120 [lb_av] 120 [lb_av] MEDEN T ([facility]) Body mass index (BMI) [Ratio] 30.3 kg/m2 30.3 k g/m2 [facility] ([facility]) Body weight 179.25 [lb_av] 179.25 [lb_av] MEDEN T ([facility]) Body height 64.5 [in_i] 64.5 [in_i] [facility] ([facility]) 5'4.50" Body temperature 97.8 [degF] 97.8 [degF] [facility] ([facility]) Oxygen saturation in Arterial blood by Pulse oximetry 100 % 100 % [facility] ([facility]) Heart rate 86 /min 86 /min [facility] ([facility]) Diastolic blood pressure 64 mm[Hg] 64 mm[Hg] [facility] ([facility]) Systolic blood pressure 116 mm[Hg] 116 mm[Hg] [facility] Diastolic blood pressure--sitting 54 mm[Hg] 54 mm[Hg] [facility] [place], large cuff/Ra Systolic blood pressure--sitting 90 mm[Hg] 90 mm[Hg] MEDENT ([facility]) [place], large cuff/Ra Heart rate 80 /min 80 /min [facility] Body mass index (BMI) [Ratio] 32.4 kg/m2 32.4 k g/m2 [facility] Body height 62 [in_i] 62 [in_i] MEDENT ([facility]) 5'2" Body weight 177.00 [lb_av] 177.00 [lb_av] MEDEN T ([facility]) Body surface area Derived from formula 1.84 m2 1.84 m2 MEDENT ([facility], ) Body weight 78.019 kg 78.019 kg MEDENT ([facility], ) [place] body weight 120 [lb_av] 120 [lb_av] MEDEN T ([facility]) Body mass index (BMI) [Ratio] 29.1 kg/m2 29.1 k g/m2 MEDENT ([facility]) Body weight 172.00 [lb_av] 172.00 [lb_av] MEDEN T ([facility], ) Body height 64.5 [in_i] 64.5 [in_i] MEDENT ([facility]) 5'4.50" Body temperature 97.0 [degF] 97.0 [degF] [facility] Oxygen saturation in Arterial blood by Pulse oximetry 98 % 98 % [facility] Heart rate 75 /min 75 /min [facility] Diastolic blood pressure 72 mm[Hg] 72 mm[Hg] MEDENT ([facility]) Systolic blood pressure 102 mm[Hg] 102 mm[Hg] M EDENT ([facility]) Body weight 2793 [oz_av] 2793 [oz_av] ZACKARY ([facility]) Systolic blood pressure 116 mm[Hg] 116 mm[Hg] [facility] Body mass index (BMI) [Ratio] 31.9 kg/m2 31.9 k g/m2 ZACKARY ([facility]) Body height 62 [in_i] 62 [in_i] ZACKARY ([facility]) Diastolic blood pressure 76 mm[Hg] 76 mm[Hg] ZACKARY ([facility]) Body weight 2793 [oz_av] 2793 [oz_av] ZACKARY ([facility]) Systolic blood pressure 116 mm[Hg] 116 mm[Hg] [facility]) Body mass index (BMI) [Ratio] 31.9 kg/m2 31.9 k g/m2 ZACKARY ([facility]) Body height 62 [in_i] 62 [in_i] ZACKARY ([facility]) Diastolic blood pressure 76 mm[Hg] 76 mm[Hg] ZACKARY ([facility]) Patient Treatment Plan of Care Planned Activity Planned Date Details Description Data Source (s) 168 HR Ethinyl Estradiol 0.25058 MG/HR / norelgestromin 0.12178 MG/HR Transdermal Patch [Xulane] ATHEN A ([facility]) 24 HR venlafaxine 75 MG Extended Release Oral Capsule ZACKARY ([facility]) 24 HR venlafaxine 37.5 MG Extended Release Oral Capsule ZACKARY ([facility]) norgestimate 0.18 mg/0.215 mg/0.25 mg-ethinyl estradiol 25 mcg tabl et ZACKARY ([facility]) Hydroxyzine Hydrochloride 25 MG Oral Tablet AZCKARY ([facility]) fluticasone propionate 50 mcg/actuation nasal spray,suspension ZACKARY ([facility]) Fluoxetine 20 MG Oral Capsule ZACKARY ([facility]) cetirizine hydrochloride 10 MG Oral Tablet ZACKARY ([facility]) Ceftriaxone 250 MG Injection ZACKARY ([facility]) Azithromycin 16.7 MG/ML Oral Suspension ZACKARY ([facility]) Amoxicillin 875 MG / Clavulanate 125 MG Oral Tablet ZACKARY ([facility])
[2020-11-02 17:08] LABS: BASO % 0.4 % (0.0-1.0); EOS # 0.1 10^3/uL (0.0-0.5); EOS % 1.6 % (0.0-3.0); HEMATOCRIT 44.1 % (36.0-47.0); HEMOGLOBIN 14.4 g/dl (12.0-15.5); LYMPH # 1.5 10^3/uL (1.5-5.0); LYMPH % 18.6 % (24.0-44.0); MEAN CORPUSCULAR HEMOGLOBIN 30.3 pg (27.0-33.0); MEAN CORPUSCULAR HGB CONC 32.7 g/dl (32.0-36.5); MEAN CORPUSCULAR VOLUME 92.6 fl (80.0-96.0); MONO # 0.5 10^3/uL (0.0-0.8); MONO % 5.9 % (2.0-8.0); NEUTROPHILS # 5.8 10^3/uL (1.5-8.5); NEUTROPHILS % 73.1 % (36.0-66.0); PLATELET COUNT, AUTOMATED 342 10^3/uL (150-450); RED BLOOD COUNT 4.76 10^6/uL (4.00-5.40); WHITE BLOOD COUNT 7.9 10^3/uL (4.0-10.0)
[2020-11-02 17:31] LABS: HCG, SERUM QUALITATIVE NEGATIVE (NEGATIVE)
[2020-11-02] MEDS ORDERED: ISOVUE-370 76% 100ML VIAL As Ordered ONE (17:37)
[2020-11-02 17:38] LABS: ALT/SGPT 73 U/L (12-78); BLOOD UREA NITROGEN 9 MG/DL (7-18); CALCIUM LEVEL 9.4 MG/DL (8.5-10.1); CARBON DIOXIDE LEVEL 28 MEQ/L (21-32); CHLORIDE LEVEL 105 MEQ/L (98-107); CPK CREATINE PHOSPHOKINASE 139 U/L (26-192); GLOMERULAR FILTRATION RATE > 60.0 (>60); GLUCOSE, FASTING 82 MG/DL (70-100); POTASSIUM SERUM 4.1 MEQ/L (3.5-5.1); SODIUM LEVEL 139 MEQ/L (136-145)
[2020-11-02 17:39] LABS: ALBUMIN 4.3 GM/DL (3.2-5.2); BILIRUBIN,DIRECT < 0.1 MG/DL (0.0-0.2); BILIRUBIN,TOTAL 0.3 MG/DL (0.2-1.0); CK-MB VALUE MASS < 1.0 NG/ML (<3.6); FREE T4 0.74 NG/DL (0.76-1.46); LIPASE 79 U/L (73-393); MB/CK RELATIVE INDEX 0.72 (< OR =4); TOTAL PROTEIN 7.4 GM/DL (6.4-8.2); TROPONIN I < 0.02 NG/ML (< 0.10)
--- NOTE | 2020-11-02 18:25 | REPVR ---
PROCEDURE INFORMATION: Exam: CT Angiography Chest With Contrast Exam date and time: 11/02/2020 5:12 PM Age: 25 years old Clinical indication: Chest pain; Additional info: Cp TECHNIQUE: Imaging protocol: Computed tomographic angiography of the chest with contrast. 3D rendering (Not supervised by radiologist): MIP and/or 3D reconstructed images were created by the technologist. Radiation optimization: All CT scans at this facility use at least one of these dose optimization techniques: automated exposure control; mA and/or kV adjustment per patient size (includes targeted exams where dose is matched to clinical indication); or iterative reconstruction. Contrast material: ISOVUE 370; Contrast volume: 75 ml; Contrast route: INTRAVENOUS (IV); COMPARISON: No relevant prior studies available. FINDINGS: Pulmonary arteries: Normal. No pulmonary emboli. Aorta: Unremarkable. No aortic aneurysm. No aortic dissection. Lungs: Unremarkable. No consolidation. No masses. Pleural spaces: Unremarkable. No pneumothorax. No pleural effusion. Heart: Unremarkable. No cardiomegaly. No pericardial effusion. Lymph nodes: Unremarkable. No enlarged lymph nodes. Bones/joints: Unremarkable. No acute fracture. Soft tissues: Unremarkable. IMPRESSION: No acute findings. Electronically signed by: Devyn Martines On 11/02/2020 18:26:25 PM
[2020-11-02 18:44] LABS: CK-MB VALUE MASS < 1.0 NG/ML (<3.6); CPK CREATINE PHOSPHOKINASE 118 U/L (26-192); MB/CK RELATIVE INDEX 0.85 (< OR =4); TROPONIN I < 0.02 NG/ML (< 0.10)
--- NOTE | 2020-11-02 18:48 | REP ---
INDICATION: chest pain. COMPARISON: None. TECHNIQUE: SINGLE PORTABLE AP VIEW OF THE CHEST WAS PERFORMED. FINDINGS: THERE IS NO ACUTE INFILTRATE OR PULMONARY EDEMA. LUNGS ARE CLEAR. HEART IS NOT SIGNIFICANTLY ENLARGED. MEDIASTINAL SILHOUETTE IS UNREMARKABLE. THE VISUALIZED OSSEOUS STRUCTURES ARE INTACT. IMPRESSION: NO ACUTE PULMONARY DISEASE. <Electronically signed by Salazar Greenwood > 11/02/20 [id number]
[2020-11-02 19:00] VITALS: BP 111/58
--- NOTE | 2020-11-03 16:27 | ECGEPIP ---
[facility] - ED Test Date: 2020-11-02 Pat Name: ELVIA FISH Department: Room: - Gender: Female Director [employer]: EMILY : 1995 Requested By: Margie Lilly Order Number: [id number] Reading MD: Bora Ramesh Measurements Intervals [place] Rate: 64 P: 41 NE: 182 QRS: 58 QRSD: 98 T: 50 QT: 414 QTc: 427 Interpretive Statements Normal sinus rhythm Similar to tracing done 16:08 on same date Electronically Signed on 11-03-2020 16:27:36 EST by Bora Ramesh
== END 2020-11-02 19:13 | disposition home or self-care (01) ==
LOC: M ED 14:58
DX: R07.9 Chest pain, unspecified (principal); R00.2 Palpitations; R20.2 Paresthesia of skin; Z88.8 Allergy status to other drugs, medicaments and biological substances
CPT/HCPCS: 36415; 71045; 71275; 80047; 80048; 80076; 82550; 82553; 83690; 84439; 84443; 84703; 85025; 93005; 99284; Q9967

== ENCOUNTER → 2020-11-05 | Outpatient (REF) | payer OTHER ==
[2020-11-05 17:11] LABS: BASO % 0.3 % (0.0-1.0); EOS # 0.2 10^3/uL (0.0-0.5); EOS % 2.5 % (0.0-3.0); HEMATOCRIT 41.9 % (36.0-47.0); HEMOGLOBIN 13.1 g/dl (12.0-15.5); LYMPH # 1.5 10^3/uL (1.5-5.0); LYMPH % 22.6 % (24.0-44.0); MEAN CORPUSCULAR HEMOGLOBIN 29.8 pg (27.0-33.0); MEAN CORPUSCULAR HGB CONC 31.3 g/dl (32.0-36.5); MEAN CORPUSCULAR VOLUME 95.4 fl (80.0-96.0); MONO # 0.4 10^3/uL (0.0-0.8); MONO % 6.2 % (2.0-8.0); NEUTROPHILS # 4.4 10^3/uL (1.5-8.5); NEUTROPHILS % 68.2 % (36.0-66.0); PLATELET COUNT, AUTOMATED 319 10^3/uL (150-450); RED BLOOD COUNT 4.39 10^6/uL (4.00-5.40); WHITE BLOOD COUNT 6.5 10^3/uL (4.0-10.0)
[2020-11-05 18:42] LABS: ALBUMIN 3.9 GM/DL (3.2-5.2); ALT/SGPT 49 U/L (12-78); BILIRUBIN,TOTAL 0.1 MG/DL (0.2-1.0); BLOOD UREA NITROGEN 13 MG/DL (7-18); CALCIUM LEVEL 8.8 MG/DL (8.5-10.1); CARBON DIOXIDE LEVEL 29 MEQ/L (21-32); CHLORIDE LEVEL 107 MEQ/L (98-107); CREATININE FOR GFR 0.75 MG/DL (0.55-1.30); GLOMERULAR FILTRATION RATE > 60.0 (>60); GLUCOSE, FASTING 82 MG/DL (70-100); HEPATITIS C VIRUS ABY INDEX < 0.0 INDEX (<0.8); HIV 1&2 SCREEN CENTAUR NEGATIVE (NEGATIVE); SODIUM LEVEL 139 MEQ/L (136-145); TOTAL PROTEIN 6.9 GM/DL (6.4-8.2)
== END ==
LOC: M LAB REF 16:27
PROVIDERS: ATTEND Family Medicine Addiction Medicine
DX: R53.83 Other fatigue (principal); Z11.3 Encounter for screening for infections with a predominantly sexual mode of transmission

== ENCOUNTER → 2021-01-12 | Outpatient (REF) | payer OTHER ==
[2021-01-12 13:10] LABS: ALBUMIN 3.8 GM/DL (3.2-5.2); ALT/SGPT 45 U/L (12-78); BILIRUBIN,TOTAL 0.2 MG/DL (0.2-1.0); BLOOD UREA NITROGEN 11 MG/DL (7-18); CALCIUM LEVEL 9.2 MG/DL (8.5-10.1); CARBON DIOXIDE LEVEL 28 MEQ/L (21-32); CHLORIDE LEVEL 107 MEQ/L (98-107); CHOLESTEROL LEVEL 187 MG/DL (<200); CHOLESTEROL RISK RATIO 2.968 (<5); GLOMERULAR FILTRATION RATE > 60.0 (>60); GLUCOSE, FASTING 92 MG/DL (70-100); HDL CHOLESTEROL 63 MG/DL (>40); LDL CHOLESTEROL 105 MG/DL (<100); NON-HDL-C 124 MG/DL; POTASSIUM SERUM 4.7 MEQ/L (3.5-5.1); SODIUM LEVEL 140 MEQ/L (136-145); TOTAL PROTEIN 6.5 GM/DL (6.4-8.2); TRIGLYCERIDES LEVEL 94 MG/DL (<150)
== END ==
LOC: M LAB REF 11:24
PROVIDERS: ATTEND Family Medicine Addiction Medicine
DX: E03.9 Hypothyroidism, unspecified (principal)

== ENCOUNTER 2021-02-08 17:13 | Emergency (ER) | payer OTHER ==
[~2021-02-08] VITALS: Ht 157.5 cm; Wt 88.7 kg
[2021-02-08] MEDS ORDERED: ONDANSETRON 4MG/2ML VIAL IV ONE (18:00)
[2021-02-08] MEDS ORDERED: KETOROLAC 30 MG/ML 1ML VIAL IV ONE (18:00)
[2021-02-08] MEDS ORDERED: PANTOPRAZOLE 40MG VIAL (C9113 PER 1) IV ONE (18:00)
[2021-02-08 18:03] LABS: BASO % 0.3 % (0.0-1.0); EOS # 0.1 10^3/uL (0.0-0.5); EOS % 1.5 % (0.0-3.0); HEMATOCRIT 40.9 % (36.0-47.0); HEMOGLOBIN 13.4 g/dl (12.0-15.5); LYMPH # 1.9 10^3/uL (1.5-5.0); LYMPH % 19.4 % (24.0-44.0); MEAN CORPUSCULAR HEMOGLOBIN 30.3 pg (27.0-33.0); MEAN CORPUSCULAR HGB CONC 32.8 g/dl (32.0-36.5); MEAN CORPUSCULAR VOLUME 92.5 fl (80.0-96.0); MONO # 0.7 10^3/uL (0.0-0.8); MONO % 7.3 % (2.0-8.0); NEUTROPHILS # 6.9 10^3/uL (1.5-8.5); NEUTROPHILS % 71.1 % (36.0-66.0); PLATELET COUNT, AUTOMATED 308 10^3/uL (150-450); RED BLOOD COUNT 4.42 10^6/uL (4.00-5.40); WHITE BLOOD COUNT 9.7 10^3/uL (4.0-10.0)
[2021-02-08 18:27] LABS: ALBUMIN 3.8 GM/DL (3.2-5.2); ALT/SGPT 23 U/L (12-78); BILIRUBIN,DIRECT < 0.1 MG/DL (0.0-0.2); BILIRUBIN,TOTAL 0.2 MG/DL (0.2-1.0); BLOOD UREA NITROGEN 14 MG/DL (7-18); CALCIUM LEVEL 9.3 MG/DL (8.5-10.1); CARBON DIOXIDE LEVEL 29 MEQ/L (21-32); CHLORIDE LEVEL 106 MEQ/L (98-107); CREATININE FOR GFR 0.83 MG/DL (0.55-1.30); GLOMERULAR FILTRATION RATE > 60.0 (>60); GLUCOSE, FASTING 84 MG/DL (70-100); LIPASE 128 U/L (73-393); POTASSIUM SERUM 4.4 MEQ/L (3.5-5.1); SODIUM LEVEL 140 MEQ/L (136-145); TOTAL PROTEIN 6.8 GM/DL (6.4-8.2)
[2021-02-08] MEDS ORDERED: ISOVUE-370 76% 100ML VIAL As Ordered ONE (18:30)
--- NOTE | 2021-02-08 19:34 | REPVR ---
PROCEDURE INFORMATION: Exam: CT Abdomen And Pelvis With Contrast Exam date and time: 02/08/2021 6:39 PM Age: 25 years old Clinical indication: Abdominal pain; Localized; Upper; Additional info: Upper abd pain TECHNIQUE: Imaging protocol: Computed tomography of the abdomen and pelvis with contrast. Radiation optimization: All CT scans at this facility use at least one of these dose optimization techniques: automated exposure control; mA and/or kV adjustment per patient size (includes targeted exams where dose is matched to clinical indication); or iterative reconstruction. Contrast material: ISOVUE 370; Contrast volume: 100 ml; Contrast route: INTRAVENOUS (IV); COMPARISON: No relevant prior studies available. FINDINGS: Limitations: Patient motion. Liver: Normal. No mass. Gallbladder and bile ducts: Suspect cholelithiasis. Pancreas: Normal. No ductal dilation. Spleen: Normal. No splenomegaly. Adrenal glands: Normal. No mass. Kidneys and ureters: Normal. No hydronephrosis. Stomach and bowel: Unremarkable. No obstruction. No mucosal thickening. Appendix: No evidence of appendicitis. Intraperitoneal space: Small volume of free fluid within the pelvis. Vasculature: Unremarkable. No abdominal aortic aneurysm. Lymph nodes: Unremarkable. No enlarged lymph nodes. Urinary bladder: Unremarkable as visualized. Reproductive: Left adnexal cystic lesion measures 5.6 cm. Bones/joints: Unremarkable. No acute fracture. Soft tissues: Small fat containing umbilical hernia. IMPRESSION: 1. Patient motion without definite acute inflammatory abnormality involving the abdomen or pelvis. 2. Left adnexal cystic lesion measures up to 5.6 cm, ultrasound as clinically warranted. Electronically signed by: Marcello Ferreira On 02/08/2021 19:34:14 PM
--- NOTE | 2021-02-08 20:58 | REPVR ---
PROCEDURE INFORMATION: Exam: US Abdomen, Limited; Right Upper Quadrant Exam date and time: 02/08/2021 8:38 PM Age: 25 years old Clinical indication: Abdominal pain; Additional info: Upper abd pain ? cholelithiasis on CT TECHNIQUE: Imaging protocol: US abdomen. Real time ultrasound with image documentation. Limited exam focused on the right upper quadrant. COMPARISON: CT ABD/PEL W/IV CONTRAST ONLY 02/08/2021 6:36 PM FINDINGS: Liver: Normal. No masses. Gallbladder: No definite shadowing calculi are visualized. No pathologic gallbladder wall thickening. Common bile duct: Normal. No stones. No dilation. Pancreas: Visualized portions of the pancreas appear within normal limits. Right kidney: Right kidney is unremarkable. IMPRESSION: 1. No acute abnormality. 2. No definite shadowing calculi are visualized within the gallbladder. Small calcification visualized on CT may potentially be mural based. Electronically signed by: Marcello Ferreira On 02/08/2021 20:58:08 PM
[2021-02-08 21:21] VITALS: BP 112/55
[2021-02-08] MEDS ORDERED: PANT40TA29 PO (21:29)
--- NOTE | 2021-02-09 06:38 | ED PDOC ---
Post-Departure Follow-Up ct abd/p faxed to shirin jose and dr montelongo for fu parving Margie Lilly MD Feb 09, 2021 06:38
== END 2021-02-08 21:49 | disposition home or self-care (01) ==
LOC: M ED 17:13
DX: N83.292 Other ovarian cyst, left side (principal); K21.9 Gastro-esophageal reflux disease without esophagitis; K59.00 Constipation, unspecified; E66.9 Obesity, unspecified; Z88.8 Allergy status to other drugs, medicaments and biological substances; Z79.899 Other long term (current) drug therapy
CPT/HCPCS: 74177; 76705; 80048; 80076; 83690; 84702; 85025; 96374; 96375; 99284; C9113; J1885; J2405; Q9967

== ENCOUNTER → 2021-02-10 | Outpatient (REF) | payer OTHER ==
[~2021-02-10] MED LIST changes: +PANT40TA29 PO
== END ==
LOC: M SFHCWAGY 13:50
PROVIDERS: ATTEND Nurse Practitioner Women's Health
DX: Z12.4 Encounter for screening for malignant neoplasm of cervix (principal)

== ENCOUNTER 2021-02-18 05:53 | Emergency (ER) | payer OTHER ==
[~2021-02-18] VITALS: Ht 157.5 cm; Wt 89.2 kg
[2021-02-18] MEDS ORDERED: METF-838 PO (06:03)
[2021-02-18] MEDS ORDERED: EUTH25TA PO (06:03)
[2021-02-18] MEDS ORDERED: NS 1,000 ML IV ONE (06:30)
[2021-02-18 07:57] LABS: BASO % 0.3 % (0.0-1.0); EOS # 0.1 10^3/uL (0.0-0.5); EOS % 1.2 % (0.0-3.0); HEMATOCRIT 39.2 % (36.0-47.0); HEMOGLOBIN 12.9 g/dl (12.0-15.5); LYMPH # 1.4 10^3/uL (1.5-5.0); LYMPH % 12.5 % (24.0-44.0); MEAN CORPUSCULAR HEMOGLOBIN 30.8 pg (27.0-33.0); MEAN CORPUSCULAR HGB CONC 32.9 g/dl (32.0-36.5); MEAN CORPUSCULAR VOLUME 93.6 fl (80.0-96.0); MONO # 0.7 10^3/uL (0.0-0.8); MONO % 6.3 % (2.0-8.0); NEUTROPHILS # 8.7 10^3/uL (1.5-8.5); NEUTROPHILS % 79.2 % (36.0-66.0); PLATELET COUNT, AUTOMATED 310 10^3/uL (150-450); RED BLOOD COUNT 4.19 10^6/uL (4.00-5.40)
[2021-02-18 08:29] LABS: ALBUMIN 3.8 GM/DL (3.2-5.2); ALT/SGPT 31 U/L (12-78); BILIRUBIN,DIRECT < 0.1 MG/DL (0.0-0.2); BILIRUBIN,TOTAL 0.2 MG/DL (0.2-1.0); TOTAL PROTEIN 6.7 GM/DL (6.4-8.2)
[2021-02-18 08:30] LABS: HCG, SERUM QUALITATIVE NEGATIVE (NEGATIVE)
[2021-02-18] MEDS ORDERED: ONDANSETRON 4MG/2ML VIAL IV ONE (08:30)
[2021-02-18] MEDS ORDERED: KETOROLAC 30 MG/ML 1ML VIAL IV ONE (08:30)
--- NOTE | 2021-02-18 10:05 | REP ---
INDICATION: pelvic pain. COMPARISON: No prior ultrasounds for comparison. Prior CT of 02/08/2021 showed a 5.6 cm sized left adnexal cystic lesion. TECHNIQUE: Transvesical and transvaginal imaging FINDINGS: Uterus measures 11.2 x 4.3 x 5.3 cm. The parenchymal echo pattern is within normal limits. The endometrial echo complex is smooth and unremarkable appearing measuring 8 mm in its greatest thickness. The right ovary measures 3.3 x 2.4 x 2.4 cm. The right ovary is within normal limits with an RI of 0.51. Left ovary measures 6.4 x 3.3 x 5.1 cm. Within the left ovary there is a complex appearing 5.5 x 4 x 2.5 cm sized cystic and solid structure. The left ovarian RI is 0.56. There is a small amount of fluid seen in the left adnexa adjacent to the left ovary. Urinary bladder measures 7 x 8 x 5 cm. IMPRESSION: Complex left ovarian cystic and solid structure as described above. This likely represents an hemorrhagic cyst. Two month follow-up pelvic ultrasound is recommended to ensure resolution. Certainly, the patient's pain persists or increases shorter interval follow-up should be obtained. Further evaluation with MRI might also be considered if clinically relevant. <Electronically signed by Jimmy Jones > 02/18/21 1002
[2021-02-18] MEDS ORDERED: NORCO, ANEXSIA 5/325MG TABLET (HYDROcodone/ACETAMINOPHEN) PO ONE (11:40)
[2021-02-18] MEDS ORDERED: OXYC1TAB23 PO (11:49)
[2021-02-18 12:04] VITALS: BP 131/69
--- NOTE | 2021-02-18 15:10 | ED PDOC ---
Post-Departure Follow-Up pelvic us faxed to dr mata for fu Margie Culver MD Feb 18, 2021 15:10
== END 2021-02-18 12:22 | disposition home or self-care (01) ==
LOC: M ED 05:53
DX: N83.202 Unspecified ovarian cyst, left side (principal); A74.9 Chlamydial infection, unspecified; Z88.6 Allergy status to analgesic agent
CPT/HCPCS: 76830; 76856; 80047; 80076; 81001; 84702; 84703; 85025; 86850; 86900; 86901; 87210; 87490; 87590; 93976; 96361; 96374; 99284; J1885; J2405

== ENCOUNTER → 2021-06-22 | Outpatient (CLI) | payer OTHER ==
[~2021-06-22] MED LIST changes: +EUTH25TA PO; +METF-838 PO; +OXYC1TAB23 PO
== END ==
LOC: M PLALAB 11:10
PROVIDERS: ATTEND Obstetrics & Gynecology
DX: Z36.9 Encounter for antenatal screening, unspecified (principal); Z3A.01 Less than 8 weeks gestation of pregnancy